=== PATIENT | female | born 1990 | race Caucasian/White ===

== ENCOUNTER 2021-04-10 11:28 | Day surgery (SDC) | payer MEDICAID ==
[2021-04-04 12:09] LABS: BASOPHILS % (AUTO) 0.5 % (0-1); EOSINOPHILS # (AUTO) 0.1 X10'3 (0-0.9); EOSINOPHILS % (AUTO) 1.3 % (0-6); LYMPHOCYTES # (AUTO) 2.6 X10'3 (1.1-4.8); MEAN CORPUSCULAR HEMOGLOBIN 31.8 PG (27.0-31.0); MEAN CORPUSCULAR HGB CONC 34.1 g/dL (33.0-36.5); MEAN CORPUSCULAR VOLUME 93.2 FL (78-98); MEAN PLATELET VOLUME 8.2 FL (7.4-10.4); MONOCYTES # (AUTO) 0.3 X10'3 (0-0.9); MONOCYTES % (AUTO) 4.6 % (2-12); NEUTROPHILS # (AUTO) 4.6 X10'3 (1.8-7.7); NEUTROPHILS % (AUTO) 59.6 % (42-75); PRE OP HEMATOCRIT 39.9 % (35.0-45.0); PRE OP HEMOGLOBIN 13.6 g/dL (12.0-16.0); PRE OP PLATELET COUNT 289 X10'3 (140-440); RED BLOOD COUNT 4.28 X10'6 (4.20-5.60); RED CELL DISTRIBUTION WIDTH 12.6 % (11.5-14.5)
[2021-04-04 12:22] LABS: ALBUMIN 3.7 G/DL (3.4-5.0); ALBUMIN/GLOBULIN RATIO 1.1 (1.1-1.5); ALKALINE PHOSPHATASE 74 IU/L (46-116); BLOOD UREA NITROGEN 19 MG/DL (7-18); BUN/CREATININE RATIO 22.4 (6.6-38.0); CALCIUM 8.7 MG/DL (8.5-10.1); CHLORIDE 105 MMOL/L (99-107); CREATININE 0.85 MG/DL (0.40-0.90); PRE OP ALT 38 U/L (30-65); PRE OP ANION GAP 6 (8-16); PRE OP AST 34 U/L (10-37); PRE OP BILIRUB, TOTAL 0.3 MG/DL (0.0-1.0); PRE OP GLUCOSE 98 MG/DL (70-104); PRE OP POTASSIUM 4.3 MMOL/L (3.4-5.1); PRE OP SODIUM 139 MMOL/L (135-145); TOTAL CARBON DIOXIDE 28.2 MMOL/L (24-32); eGFR 78 ML/MIN
[2021-04-04 12:25] LABS: HCG SERUM QL NEGATIVE
[2021-04-10] VITALS (14 sets, daily range): BP systolic 95–127; BP diastolic 61–86
[~2021-04-10] VITALS: Ht 165.1 cm; Wt 75.3 kg
[~2021-04-10 11:28] MED LIST: NO HOME MEDS; ceFOXitin 2GM-NS 100mL ADDvant 100 ML IV ONE; famotidine 20mg tablet PO ONE; ringers solution, lacted 1,000 ML IV SCH
[2021-04-10] MEDS ORDERED: labetalol 20mg/4ml (5mg/ml) syringe IV PRN (12:00)
[2021-04-10] MEDS ORDERED: ondansetron/PF 4mg/2ml inj IV PRN (12:00)
[2021-04-10] MEDS ORDERED: morphine 2 MG/ML inj. syringe IV PRN (12:00)
[2021-04-10] MEDS ORDERED: ringers solution, lacted 1,000 ML IV SCH (12:00)
[2021-04-10] MEDS ORDERED: hydrALAZINE 20mg/ml inj. IV PRN (12:00)
[2021-04-10] MEDS ORDERED: morphine 4 MG/ML inj SYRINge IV PRN (12:00)
[2021-04-10] MEDS ORDERED: proCHLORperazine 10 MG/2 ml inj IV PRN (12:00)
[2021-04-10] MEDS ORDERED: acetaminophen 1,000mg/100ml IV 100 ML IV PRN (12:00)
[2021-04-10] MEDS ORDERED: meperidine/PF 25mg/ml syringe IV PRN ×3 (12:00)
[2021-04-10] MEDS ORDERED: BUPIVAcaine/PF 2.5 mg/ml (0.25%) 30ml vial ONE (12:06)
[2021-04-10] MEDS ORDERED: fentaNYL/PF 50MCG/1 ML 2ML syringe ONE (13:10)
[2021-04-10] MEDS ORDERED: midazolam 1 mg/ML 2ml injection ONE (13:11)
[2021-04-10] MEDS ORDERED: LIDOcaine 2% (20mg/ml) 5ml vial ONE (13:27)
[2021-04-10] MEDS ORDERED: ondansetron/PF 4mg/2ml inj ONE (13:27)
[2021-04-10] MEDS ORDERED: dexamethasone sod phosphate 4mg/ml inj. ONE (13:27)
[2021-04-10] MEDS ORDERED: rocuronium 10mg/ml inj IV ONE (13:27)
[2021-04-10] MEDS ORDERED: propofol inj 20 ML IV ONE (13:27)
--- NOTE | 2021-04-10 14:20 | NUR ---
Received from OR via [facility] , accompanied by Anesthesiologist TANO and report given by Anesthesiolgist. PATIENT WITH 20G PIV IN LEFT UE RUNNING LR AT 100. 3 LAP SITES TO ABDOMEN THAT ARE ALL CDI. VSS. MEDICATED FOR PAIN UPON ARRIVAL . Addendum: 04/10/21 at 1454 by Shyam Braun RN, RN Amended: Links added.
--- NOTE | 2021-04-10 16:30 | NUR ---
ALL DISCHARGE CRITERIA HAS BEEN MET. VSS, PAIN AT A TOLERABLE LEVEL, VOIDING AND ABLE TO SAFELY AMBULATE AND TRANSFER SELF. IV TAKEN OUT WITHOUT ANY COMPLICATIONS. ALL DISCHARGE INSTRUCTIONS COVERED WITH PATIENT AND ALL QUESTIONS ANSWERED. PATIENT TAKEN OUT VIA WHEELCHAIR TO PERSONAL VEHICLE WHERE FAMILY/FRIEND DROVE PATIENT HOME Addendum: 04/10/21 at 1655 by Shyam Braun RN, RN Amended: Links added.
== END 2021-04-10 16:30 | disposition home or self-care (01) ==
LOC: PAS 11:28
PROVIDERS: ATTEND Obstetrics & Gynecology Obstetrics
DX: Z30.2 Encounter for sterilization (principal); T83.89XA Other specified complication of genitourinary prosthetic devices, implants and grafts, initial encounter; Z20.822 Contact with and (suspected) exposure to COVID-19; F17.210 Nicotine dependence, cigarettes, uncomplicated; F41.9 Anxiety disorder, unspecified; Z98.890 Other specified postprocedural states; Z72.89 Other problems related to lifestyle; Z86.14 Personal history of Methicillin resistant Staphylococcus aureus infection; Z79.899 Other long term (current) drug therapy; Y83.8 Other surgical procedures as the cause of abnormal reaction of the patient, or of later complication, without mention of misadventure at the time of the procedure; Y92.89 Other specified places as the place of occurrence of the external cause
CPT/HCPCS: 36415; 58562; 58670; 80053; 82948; 84703; 85025; 86885; 86900; 86901; J0131; J0694; J1100; J2175; J2250; J2270; J2405; J2704; J3010; J3490; J7030; J7120; U0003; U0005; Z7506; Z7508; Z7512; A4355; A4618; A6258